=== PATIENT | female | born 1995 | race Caucasian/White ===

== ENCOUNTER 2017-05-16 07:19 | Emergency (ER) | payer MEDICAID ==
[~2017-05-16] VITALS: Ht 162.6 cm; Wt 53.1 kg
[2017-05-16] MEDS ORDERED: MECL12.582 PO (07:28)
[2017-05-16] MEDS ORDERED: IV NORMAL SALINE 1000 ML BAG IV ONE (07:45)
--- NOTE | 2017-05-16 07:55 | NUR ---
Pt is in room #2b. Dr Ford evaluated the pt.
[2017-05-16] MEDS ORDERED: IV NORMAL SALINE 250 ML IV ONE (08:06)
[2017-05-16] MEDS ORDERED: IOHEXOL 350 100 ML INFUS..BTL ONE (08:06)
[2017-05-16] MEDS ORDERED: LORAZEPAM 0.5 MG TABLET PO ONE (08:45)
[2017-05-16] MEDS ORDERED: LORAZEPAM 1 MG TABLET ONE (08:49)
[2017-05-16 09:26] LABS: BASOPHILS % (AUTO) 0.2 % (0.0-2.0); EOSINOPHILS % (AUTO) 0.4 % (0.0-7.0); HEMATOCRIT 38.6 % (31.2-41.9); HEMOGLOBIN 13.6 g/dL (10.9-14.3); LYMPHOCYTES # (AUTO) 1.4 K/uL (20.0-40.0); LYMPHOCYTES % (AUTO) 15.5 % (20.5-51.5); MEAN CORPUSCULAR HEMOGLOBIN 30.8 uug (24.7-32.8); MEAN CORPUSCULAR HGB CONC 35 g/dL (32.3-35.6); MEAN CORPUSCULAR VOLUME 87.3 fL (75.5-95.3); MONOCYTES # (AUTO) 0.3 K/uL (2.0-10.0); MONOCYTES % (AUTO) 3.9 % (0.0-11.0); PLATELET COUNT (AUTO) 185 K/uL (179-408); RED BLOOD CELL COUNT(AUTO) 4.43 MIL/uL (3.63-4.92); WHITE BLOOD COUNT (AUTO) 8.8 K/uL (3.8-11.8)
[2017-05-16 09:36] LABS: BILIRUBIN,DIRECT 0.1 mg/dL (0.0-0.2); BILIRUBIN,TOTAL 0.5 mg/dL (0.2-1.0); CREATININE 0.7 mg/dL (0.6-1.3); POTASSIUM 3.1 mmol/L (3.5-5.1); TOTAL PROTEIN, SERUM 7.7 g/dL (6.4-8.2)
--- NOTE | 2017-05-16 13:27 | NUR ---
PT WAS D/C TO HOME AFTER DR DAY RE-EVALUATION. D/C INSTRUCTIONS GIVEN TO THE PT.
[2017-05-16 13:29] VITALS: BP 128/61
== END 2017-05-16 13:30 | disposition home or self-care (01) ==
LOC: ER 07:19
DX: M54.12 Radiculopathy, cervical region (principal); R42 Dizziness and giddiness; M54.2 Cervicalgia; F17.200 Nicotine dependence, unspecified, uncomplicated
CPT/HCPCS: 36415; 84703; 85025; 85730; 93005; A4663; J7030; J7050; Q9967